=== PATIENT | female | born 1980 | race Caucasian/White ===

== ENCOUNTER 2020-12-25 07:30 | Emergency (ER) | payer OTHER ==
[~2020-12-25 07:30] MED LIST: BACTRIM 400-801 EACH PO; CEFUROXIME500 MG PO; IBUPROFEN800 MG PO; NORCO 7.5-3251 EACH PO; PROTONIX40 MG PO; ZOFRAN4 MG PO
== END 2020-12-25 12:29 | disposition home or self-care (01) ==
LOC: ER1 07:30
DX: F29 Unspecified psychosis not due to a substance or known physiological condition (principal); F15.10 Other stimulant abuse, uncomplicated
CPT/HCPCS: 99284

== ENCOUNTER 2020-12-26 04:45 | Emergency (ER) | payer OTHER | END 2020-12-26 07:30 | disposition left against medical advice (07) | LOC: ER1 04:45 | DX: Z53.21 Procedure and treatment not carried out due to patient leaving prior to being seen by health care provider (principal) ==